=== PATIENT | female | born 1975 | race Two or more races ===

== ENCOUNTER 2018-07-16 13:55 | Emergency (ER) | payer SELFPAY ==
[~2018-07-16] VITALS: Ht 162.6 cm; Wt 68.0 kg
[2018-07-16 13:38] VITALS: BP 140/90
[2018-07-16] MEDS ORDERED: Acetaminophen 500mg (ES) tab ORAL ONE (14:15)
[2018-07-16] MEDS ORDERED: Cyclobenzaprine 10mg Tab ORAL ONE (14:15)
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
[2018-07-16] MEDS ORDERED: CYCLOBENZAPRINE10 MG ORAL (16:42)
[2018-07-16] MEDS ORDERED: IBUPROFEN600 MG ORAL (16:42)
[2018-07-16 17:00] VITALS: BP 132/80
--- NOTE | 2018-07-16 17:12 | Diagnostic Imaging Report ---
Indications: PAIN Technique: Three views of the lumbar Comparison: None Findings: No acute fractures. No dislocations. Joint spaces are preserved. Vertebral body heights are preserved. Disc spaces are preserved. Pedicles are intact. Surrounding soft tissues are unremarkable. Normal mineralization. Impression: Negative
--- NOTE | 2018-07-16 17:13 | Diagnostic Imaging Report ---
Indication: Reason For Exam: PAIN Technique: 2 views of the left tibia and fibula Comparison: none Findings: No acute fractures. No dislocations. No radiopaque foreign body Impression: Negative
--- NOTE | 2018-07-16 17:14 | Diagnostic Imaging Report ---
Indication: Cervical spine pain Technique: 3 views of the cervical spine Comparison: none Findings: Bony alignment is normal. Vertebral body heights are preserved. Disc spaces are preserved. No prevertebral soft tissue swelling. Impression: Negative
--- NOTE | 2018-07-16 17:14 | Diagnostic Imaging Report ---
Indication: Chest Technique: One view of the chest Comparison: none Findings: Lungs and pleural spaces are clear. Heart size is normal Impression: No acute process
== END 2018-07-16 17:00 | disposition home or self-care (01) ==
LOC: EDBD 13:55 → EMR 14:25
DX: M54.5 Low back pain (principal); M54.2 Cervicalgia; M79.605 Pain in left leg; V43.62XA Car passenger injured in collision with other type car in traffic accident, initial encounter; Y92.410 Unspecified street and highway as the place of occurrence of the external cause
CPT/HCPCS: 71045; 72020; 72040; 81025; 99284